=== PATIENT | female | born 1975 | race African-American/Black ===

== ENCOUNTER 2018-05-27 11:01 | Emergency (ER) | payer BC ==
[~2018-05-27] VITALS: Ht 160 cm; Wt 94.3 kg
--- OUTSIDE RECORDS SUMMARY | 2018-05-27 11:04 | XMS REPORT | Clinical Summary ---
Author Author ANDRÉS [facility] Address Unknown Phone Unavailable Care Team Providers Care Snout Puller Name Role Phone Manish Petit RN PCP Unavailable Allergies Comments Active Allergy Reactions Severity Noted Date Black spots Sulfa (Sulfonamide Other (See 05/17/2018 Antibiotics) Comments) Medications End Date Status Medication Sig Dispensed Refills Start Date Active sertraline (ZOLOFT) 100 Take 100 mg 0 MG tablet by mouth 2 (two) times daily . Active busPIRone (BUSPAR) 10 MG Take 10 mg by 0 tablet mouth 3 (three) times daily. Active traZODone (DESYREL) 50 MG Take 100 mg 0 tablet by mouth nightly . Active clonazePAM (KLONOPIN) 1 Take 1 mg by 0 MG tablet mouth 2 (two) times daily as needed for Anxiety. Active omeprazole (PRILOSEC) 40 Take 40 mg by 0 MG capsule mouth daily. Active Problems Problem Noted Date Atypical chest pain 05/18/2018 Obesity 05/18/2018 Weakness 05/17/2018 Encounters Care Team Description Date Type Specialty Chen Rodriguez MD Kemal, MD Everton Botoh, Kimberlee Carlin MD Weakness (Primary Dx); Chest pressure; Atypical chest pain; LATANYA (obstructive sleep apnea); Tobacco use 05/17/2018 Emergency Cardiology - 05/19/2018 05/17/2018 Orders Only General Internal Medicine 05/17/2018 Travel after 05/26/2017 Family History Medical History Relation Name Comments Depression Brother Diabetes Brother Heart disease Brother Mental retardation Brother Arthritis Maternal Grandmother Diabetes Mother Hypertension Mother Hypertension Paternal Grandfather Stroke Paternal Grandfather Hypertension Paternal Grandmother Stroke Paternal Grandmother Relation Name Status Comments Brother Maternal Grandmother Mother Paternal Grandfather Paternal Grandmother Social History Date Tobacco Use Types Packs/Day Years Used Current Every Day Smoker 0.25 Smokeless Tobacco: Never Used Tobacco Cessation: Ready to Quit: No; Counseling Given: Yes Alcohol Use Drinks/Week oz/Week Comments Yes 2 Glasses of 1.2 2glasses wine every night wine Sex Assigned at Date Recorded Not on file Industry Job Start Date Occupation Not on file Not on file Not on file Travel End Travel History Travel Start No recent travel history available. Last Filed Vital Signs Time Taken Vital Sign Reading 05/19/2018 4:18 PM BIOLOGY LECTURER Blood Pressure 133/91 05/19/2018 4:18 PM BIOLOGY LECTURER Pulse 72 05/19/2018 4:18 PM BIOLOGY LECTURER Temperature 36.7 C (98 F) 05/19/2018 4:18 PM BIOLOGY LECTURER Respiratory Rate 18 05/19/2018 4:18 PM BIOLOGY LECTURER Oxygen Saturation 99% 05/19/2018 12:12 AM BIOLOGY LECTURER Inhaled Oxygen 30% Concentration 05/19/2018 8:00 AM BIOLOGY LECTURER Weight 94.3 kg (208 lb) 05/18/2018 12:56 AM BIOLOGY LECTURER Height 160 cm (5' 3") 05/19/2018 8:00 AM BIOLOGY LECTURER Body Mass Index 36.85 Plan of Treatment Not on file Procedures Comments Procedure Name Priority Date/Time Associated Diagnosis REPORT OF PROCEDURE - 05/22/2018 ENDOSCOPY SCAN 2:10 PM CDT RHYTHM STRIP - SCAN 05/22/2018 2:10 PM CDT NM CARDIAC PET PERFUSION KRISTAL 05/19/2018 REST AND/OR STRESS 12:42 PM BIOLOGY LECTURER CBC W/PLT COUNT & AUTO Routine 05/19/2018 DIFFERENTIAL 3:43 AM BIOLOGY LECTURER CBC W/PLT COUNT & AUTO Routine 05/19/2018 DIFFERENTIAL 3:43 AM BIOLOGY LECTURER BASIC METABOLIC PANEL (7) Routine 05/19/2018 3:43 AM BIOLOGY LECTURER ECG 12-LEAD Routine 05/18/2018 5:23 PM BIOLOGY LECTURER ECG 12-LEAD Routine 05/18/2018 5:23 PM BIOLOGY LECTURER Procedure Note - Interface, External Ris In - 05/18/2018 5:29 PM BIOLOGY LECTURER Ventricula r Rate 63 BPM Atrial Rate 63 BPM P-R Interval 164 ms QRS Duration 84 ms Q-T Interval 386 ms QTC Calculatio n(Bazett) 395 ms P Treadwell 57 degrees R Treadwell 27 degrees T Treadwell 22 degrees Normal sinus rhythm Normal ECG When compared with ECG of 9 07:01, No significan t change was found TROPONIN I STAT 05/18/2018 8:27 AM BIOLOGY LECTURER ECG 12-LEAD Routine 05/18/2018 7:01 AM BIOLOGY LECTURER TROPONIN I STAT 05/18/2018 1:20 AM BIOLOGY LECTURER TROPONIN I STAT 05/17/2018 11:46 PM BIOLOGY LECTURER ECG 12-LEAD Routine 05/17/2018 9:52 PM BIOLOGY LECTURER Procedure Note - Interface, External Ris In - 05/17/2018 10:46 PM BIOLOGY LECTURER Ventricula r Rate 66 BPM Atrial Rate 66 BPM P-R Interval 162 ms QRS Duration 82 ms Q-T Interval 386 ms QTC Calculatio n(Bazett) 404 ms P Treadwell 29 degrees R Treadwell 2 degrees T Treadwell 30 degrees Normal sinus rhythm Normal ECG When compared with ECG of 9 12:02, No significan t change was found ECG 12-LEAD STAT 05/17/2018 9:52 PM BIOLOGY LECTURER CBC W/PLT COUNT & AUTO STAT 05/17/2018 DIFFERENTIAL 9:20 PM BIOLOGY LECTURER TROPONIN I STAT 05/17/2018 9:20 PM BIOLOGY LECTURER BASIC METABOLIC PANEL (7) STAT 05/17/2018 9:20 PM BIOLOGY LECTURER B-TYPE NATRIURETIC FACTOR STAT 05/17/2018 (BNP) 9:20 PM BIOLOGY LECTURER CBC W/PLT COUNT & AUTO STAT 05/17/2018 DIFFERENTIAL 9:[address] BRAIN WITHOUT IV STAT 05/17/2018 CONTRAST 9:03 PM BIOLOGY LECTURER XR CHEST 2 VIEWS STAT 05/17/2018 8:43 PM BIOLOGY LECTURER URINALYSIS MICROSCOPIC Routine 05/17/2018 8:23 PM BIOLOGY LECTURER URINALYSIS WITH STAT 05/17/2018 MICROSCOPIC IF INDICATED 8:23 PM BIOLOGY LECTURER SCREEN, URINE STAT 05/17/2018 8:23 PM BIOLOGY LECTURER ECG 12-LEAD Routine 05/17/2018 8:16 PM BIOLOGY LECTURER after 05/26/2017 Results * EKG-SCANNED (05/22/2018 2:10 PM CDT) Narrative Performed At * RHYTHM STRIP - SCAN (05/22/2018 2:10 PM CDT) Narrative Performed At * NM myocardial perfusion PET (rest and stress) (05/19/2018 12:42 PM BIOLOGY LECTURER) Narrative Performed At FINAL REPORT [facility] PROCEDURE: Rest/Stress MYOCARDIAL PERFUSION PET with regadenoson\\XA9\\ CPT CODE:07419 INDICATION:chest pain, chest [id number], obesity BMI=36.8 PROTOCOL:Limited low-dose CT imaging was performed for attenuation correction. 40.2 mCi of Rb-82 chloride was injected iv at rest, and gated PET (positron emission tomography) images were obtained. Subsequently, 40.1 mCi of Rb-82 chloride was injected iv at expected peak pharmacologic effect, and gated PET images were obtained. PRELIMINARY STRESS TEST DATA FROM NONINVASIVE CARDIOLOGY: Pharmacologic stress was by 10-second iv infusion of 0.4 mg of regadenoson. Radiotracer was injected 30 seconds after start of stress. Heart rate was 64 beats/min at rest and 97 beats/min (54% of MPHR) at tracer injection. BP was 124/79 mmHg at rest and 122/86 mmHg at tracer injection. Stress was stopped for predetermined endpoint. Preliminary ECG evaluation was not available from Cardiology at the time of this report. (Final ECG interpretation and other stress and monitoring data are reported separately by Cardiology.) IMAGING FINDINGS: Study quality is good. Images obtained after rest and stress injections show normal LV activity. LV and RV volumes appear normal. Gated images obtained at rest and with stress show normal LV wall motion and thickening. LVEF at rest is 55-60%. LVEF at stress is 72%. IMPRESSION: 1. Normal study.2. Appropriate pharmacologic stress.3. Normal myocardial perfusion.4. Normal resting LV function. No deterioration with pharmacologic stress.5. Normal extracardiac tracer distribution. Signed: Rula Padilla MD Report Verified Date/Time:05/19/2018 15:15:40 Procedure Note Interface, External Ris In - 05/19/2018 3:17 PM BIOLOGY LECTURER FINAL REPORT PROCEDURE: Rest/Stress MYOCARDIAL PERFUSION PET with regadenoson\\XA9\\ CPT CODE: 24209 INDICATION: chest pain, chest pressure R07.89, obesity BMI=36.8 PROTOCOL: Limited low-dose CT imaging was performed for attenuation correction. 40.2 mCi of Rb-82 chloride was injected iv at rest, and gated PET (positron emission tomography) images were obtained. Subsequently, 40.1 mCi of Rb-82 chloride was injected iv at expected peak pharmacologic effect, and gated PET images were obtained. PRELIMINARY STRESS TEST DATA FROM NONINVASIVE CARDIOLOGY: Pharmacologic stress was by 10-second iv infusion of 0.4 mg of regadenoson. Radiotracer was injected 30 seconds after start of stress. Heart rate was 64 beats/min at rest and 97 beats/min (54% of MPHR) at tracer injection. BP was 124/79 mmHg at rest and 122/86 mmHg at tracer injection. Stress was stopped for predetermined endpoint. Preliminary ECG evaluation was not available from Cardiology at the time of this report. (Final ECG interpretation and other stress and monitoring data are reported separately by Cardiology.) IMAGING FINDINGS: Study quality is good. Images obtained after rest and stress injections show normal LV activity. LV and RV volumes appear normal. Gated images obtained at rest and with stress show normal LV wall motion and thickening. LVEF at rest is 55-60%. LVEF at stress is 72%. IMPRESSION: 1. Normal study. 2. Appropriate pharmacologic stress. 3. Normal myocardial perfusion. 4. Normal resting LV function. No deterioration with pharmacologic stress. 5. Normal extracardiac tracer distribution. Signed: Rula Padilla MD Report Verified Date/Time: 05/19/2018 15:15:40 Performing Organization Address City/State/Zipcode Phone Number [facility] * CBC with platelet count + automated diff (05/19/2018 3:43 AM BIOLOGY LECTURER) Only the most recent of 2 results within the time period is included. WBC 7.1 3.5 - 10.5 K/L [facility] RBC 4.21 3.93 - 5.22 M/L [facility] Hemoglobin 10.7 (L) 11.2 - 15.7 GM/DL [facility] Hematocrit 35.1 34.1 - 44.9 % [facility] MCV 83.4 79.4 - 94.8 fL [facility] MCH 25.4 (L) 25.6 - 32.2 pg [facility] MCHC 30.5 (L) 32.2 - 35.5 GM/DL [facility] RDW 17.3 (H) 11.7 - 14.4 % [facility] Platelets 287 150 - 450 K/CU MM [facility] MPV 10.5 9.4 - 12.3 fL [facility] nRBC 0 0 - 0 /100 WBC [facility] % Neutros 50 % [facility] % Lymphs 37 % [facility] % Monos 9 % [facility] % Eos 3 % [facility] % Baso 1 % [facility] # Neutros 3.52 1.56 - 6.13 K/L [facility] # Lymphs 2.62 1.18 - 3.74 K/L [facility] # Monos 0.64 (H) 0.24 - 0.36 K/L [facility] # Eos 0.19 0.04 - 0.36 K/L [facility] # Baso 0.06 0.01 - 0.08 K/L [facility] Immature 0 0 - 1 % [facility] Granulocytes-Relative [facility] Specimen Blood - Arm, Right Performing Organization Address City/[facility]/Zipcode Phone Number [facility] [address], [place] [phone] [facility] * Basic metabolic panel (05/19/2018 3:43 AM BIOLOGY LECTURER) Only the most recent of 2 results within the time period is included. Sodium 140 136 - 145 meq/L [facility] Potassium 4.8 3.5 - 5.1 meq/L [facility] Chloride 105 98 - 107 meq/L [facility] CO2 28 22 - 29 meq/L [facility] BUN 9 7 - 21 mg/dL [facility] Creatinine 0.80 0.57 - 1.25 mg/dL [facility] Glucose 84 70 - 105 mg/dL [facility] Calcium 9.4 8.4 - 10.2 mg/dL [facility] EGFR 95Comment: ESTIMATED GFR IS mL/min/1.73 sq m [facility] NOT ACCURATE CREATININE [facility] CLEARANCE IN PREDICTING GLOMERULAR FILTRATION RATE. ESTIMATED GFR IS NOT APPLICABLE FOR DIALYSIS PATIENTS. Specimen Blood - Arm, Right Performing Organization Address [facility] Phone Number [facility] [address], [place] [phone] [facility] * ECG 12 lead (05/18/2018 5:23 PM BIOLOGY LECTURER) Only the most recent of 4 results within the time period is included. Narrative Performed At Ventricular Rate 63 BPM [facility] Atrial Rate 63 BPM P-R Interval 164 ms QRS Duration 84 ms Q-T Interval 386 ms QTC Calculation(Bazett) 395 ms P Treadwell 57 degrees R Treadwell 27 degrees T Treadwell 22 degrees Normal sinus rhythm Normal ECG When compared with ECG of 18-MAY-2018 07:01, No significant change was found Confirmed by MD Graham Roberto ([id number]) on 05/19/2018 11:16:45 AM Procedure Note Interface, External Ris In - 05/19/2018 11:16 AM BIOLOGY LECTURER Ventricular Rate 63 BPM Atrial Rate 63 BPM P-R Interval 164 ms QRS Duration 84 ms Q-T Interval 386 ms QTC Calculation(Bazett) 395 ms P Treadwell 57 degrees R Treadwell 27 degrees T Treadwell 22 degrees Normal sinus rhythm Normal ECG When compared with ECG of 18-MAY-2018 07:01, No significant change was found Confirmed by MD Graham Roberto ([id number]) on 05/19/2018 11:16:45 AM Performing Organization Address City/[facility]/Zipcode Phone Number [facility] * Troponin I (05/18/2018 8:27 AM BIOLOGY LECTURER) Only the most recent of 4 results within the time period is included. Troponin I <0.01 0.00 - 0.03 ng/mL [facility] Specimen Blood Narrative Performed At Troponin I (TnI) levels must be interpreted in the context of the presenting [facility] symptoms and the clinical findings. Elevated TnI levels indicate myocardial [facility] damage, but are not specific for ischemic heart disease. Elevated TnI levels are seen in patients with other cardiac conditions (including myocarditis and congestive heart failure), and slight TnI elevations occur in patients with other conditions, including sepsis, renal failure, acidosis, acute neurological disease, and persistent tachyarrhythmia. Performing Organization Address [facility] Phone Number [place] [phone] * B-type Natriuretic Factor (BNP) (05/17/2018 9:20 PM BIOLOGY LECTURER) BNP 33 0 - 100 pg/mL [facility] Specimen Blood - Arm, Right Performing Organization Address [facility] Phone Number [address] [address] [facility] * CT brain without IV contrast (05/17/2018 9:03 PM BIOLOGY LECTURER) Narrative Performed At FINAL REPORT [facility] CT, BRAIN, WITHOUT CONTRAST CLINICAL INDICATION:Focal neuro deficit, new, fixed or worsening, >6 hours NEUROLOGIC PROBLEM COMPARISON: None TECHNIQUE:Noncontrast axial CT imaging of the brain and skull. DOSE REDUCTION: Dose modulation, iterative reconstruction, and/or weight-based adjustment of the mA/kV was utilized to reduce the radiation dose to as low as reasonably achievable. FINDINGS: Cerebral parenchyma: Unremarkable. Midline structures: Normally positioned. Cerebellum and brainstem: Normal. Ventricles: Normal volume. Extra-axial spaces: Unremarkable. Calvarium and skull base: Intact. Paranasal sinuses and mastoid air cells: Visible chambers are clear. Orbital contents: Included portions unremarkable. Additional findings: None. IMPRESSION: No acute intracranial abnormality. If there is persistent clinical concern for intracranial pathology, MR examination is recommended for further characterization. Signed: JR Le Robert MD Report Verified Date/Time:05/17/2018 21:03:08 Reading Location: [facility] Radiology Reading Room Procedure Note Interface, External Ris In - 05/17/2018 9:05 PM BIOLOGY LECTURER FINAL REPORT CT, BRAIN, WITHOUT CONTRAST CLINICAL INDICATION: Focal neuro deficit, new, fixed or worsening, >6 hours NEUROLOGIC PROBLEM COMPARISON: None TECHNIQUE: Noncontrast axial CT imaging of the brain and skull. DOSE REDUCTION: Dose modulation, iterative reconstruction, and/or weight-based adjustment of the mA/kV was utilized to reduce the radiation dose to as low as reasonably achievable. FINDINGS: Cerebral parenchyma: Unremarkable. Midline structures: Normally positioned. Cerebellum and brainstem: Normal. Ventricles: Normal volume. Extra-axial spaces: Unremarkable. Calvarium and skull base: Intact. Paranasal sinuses and mastoid air cells: Visible chambers are clear. Orbital contents: Included portions unremarkable. Additional findings: None. IMPRESSION: No acute intracranial abnormality. If there is persistent clinical concern for intracranial pathology, MR examination is recommended for further characterization. Signed: JR Le Robert MD Report Verified Date/Time: 05/17/2018 21:03:08 Reading Location: [facility] Radiology Reading Room Performing Organization Address City/State/Zipcode Phone Number [facility] * XR chest 2 views (05/17/2018 8:43 PM BIOLOGY LECTURER) Narrative Performed At FINAL REPORT [facility] Chest, 2 views. Clinical History: NEUROLOGIC PROBLEM Comparison Study: December 08, 2008 Findings:The heart and lungs are within normal limits.A hiatal hernia is present, slightly larger than on previous. The pleural spaces are clear. Degenerative changes are seen. Impression: No active cardiopulmonary disease. Hiatal hernia. Signed: Giram Larry MD Report Verified Date/Time:05/17/2018 21:11:33 Reading Location: [id number] Ortho Consult Reading Room Procedure Note Interface, External Ris In - 05/17/2018 9:13 PM BIOLOGY LECTURER FINAL REPORT Chest, 2 views. Clinical History: NEUROLOGIC PROBLEM Comparison Study: December 08, 2008 Findings: The heart and lungs are within normal limits. A hiatal hernia is present, slightly larger than on previous. The pleural spaces are clear. Degenerative changes are seen. Impression: No active cardiopulmonary disease. Hiatal hernia. Signed: Girma Larry MD Report Verified Date/Time: 05/17/2018 21:11:33 Reading Location: [id number] Ortho Consult Reading Room Performing Organization Address [facility]/Zipcode Phone Number [facility] * Urinalysis Microscopic Only (05/17/2018 8:23 PM BIOLOGY LECTURER) RBC, UA 4 /HPF [facility] WBC, UA <1 /HPF [facility] Mucus Occasional [facility] Squam Epithel, UA 1 /HPF [facility] Specimen Urine - Urine, Voided Performing Organization Address [facility]/Zipcode Phone Number [facility] [address] [place] [address] [facility] * Urinalysis with Microscopic If Indicated (05/17/2018 8:23 PM BIOLOGY LECTURER) Color, UA Yellow [facility] Clarity, UA Clear [facility] Specific [place], UA 1.019 1.001 - 1.035 [facility] pH, UA 6.0 5.0 - 8.0 [facility] Protein, UA 20 mg/dL (A) Negative [facility] Glucose, UA Negative Negative [facility] Ketones, UA 10 mg/dL (A) Negative [facility] Bilirubin, UA Negative Negative [facility] Blood, UA Small (A) Negative [facility] Nitrite, UA Negative Negative [facility] Leukocytes, UA Negative Negative [facility] Urobilinogen, UA 0.2 0.2 - 1.0 mg/dL [facility] Specimen Source [facility] Specimen Urine - Urine, Voided Performing Organization Address City/[facility] Phone Number [address] [address] [facility] * screen, urine (05/17/2018 8:23 PM BIOLOGY LECTURER) Preg Test, Ur Negative [facility] Specimen Urine - Urine, Voided Performing Organization Address City/State/Zipcode Phone Number [address] [address] [facility] after 05/26/2017 Advance Directives For more information, please contact: [address] [phone] Date Inactivated Comments Code Status Date Activated 05/19/2018 7:47 PM Full Code 05/18/2018 12:47 AM This code status was determined by: Patient
--- OUTSIDE RECORDS SUMMARY | 2018-05-27 11:04 | XMS REPORT ---
Author Author [facility] Address Unknown Phone Unavailable Care Team Providers Care Oracle Sql Developer Name Role Phone MARSHAL ALEX Unavailable Unavailable Problems This patient has no known problems. Allergies, Adverse Reactions, Alerts This patient has no known allergies or adverse reactions. Medications This patient has no known medications. Results Test Description Test Time Test Comments Text Results Atomic Results Result Comments PET, CARDIAC PERFUSION MULTIPLE STUDIES, REST AND STRESS 2018-05-19 15:15:00 Reason for exam:->chest pain FINAL REPORT PROCEDURE: Rest/Stress MYOCARDIAL PERFUSION PET with regadenoson\XA9\CPT CODE: [id number]: chest pain, chest pressure R07.89, obesity BMI=3 6.8PROTOCOL: Limited low-dose CT imaging was performed for [...] Normal extracardiac tracer distribution. Signed: Rula Padilla MDReport Verified Date/Time: 05/19/2018 15:15:40 C METABOLIC PANEL 2018-05-19 04:18:00 SODIUM (BEAKER) (test fmah=201) 140 meq/L 136-145 POTASSIUM (BEAKER) (test pxmm=116) 4.8 meq/L 3.5-5.1 CHLORIDE (BEAKER) (test tvxe=562) 105 meq/L 98-107 CO2 (BEAKER) (test iwpn=941) 28 meq/L 22-29 BLOOD UREA NITROGEN (BEAKER) (test dnue=045) 9 mg/dL 7-21 CREATININE (BEAKER) (test ldgo=691) 0.80 mg/dL 0.57-1.25 GLUCOSE RANDOM (BEAKER) (test onsp=603) 84 mg/dL 70-105 CALCIUM (BEAKER) (test wecl=405) 9.4 mg/dL 8.4-10.2 EGFR (BEAKER) (test ejrs=9621) 95 mL/min/1.73 sq m ESTIMATED GFR IS NOT ACCURATE CREATININE CLEARANCE IN PREDICTING GLOMERULAR FILTRATION RATE. ESTIMATED GFR IS NOT APPLICABLE FOR DIALYSIS PATIENTS. CBC W/PLT COUNT & AUTO [id number] 04:09:00* Test Item Value Reference Range Comments WHITE BLOOD CELL COUNT (BEAKER) (test otpa=341) 7.1 K/ L 3.5-10.5 RED BLOOD CELL COUNT (BEAKER) (test noyw=354) 4.21 M/ L 3.93-5.22 HEMOGLOBIN (BEAKER) (test gnbp=827) 10.7 GM/DL 11.2-15.7 HEMATOCRIT (BEAKER) (test mnew=131) 35.1 % 34.1-44.9 MEAN CORPUSCULAR VOLUME (BEAKER) (test bihr=389) 83.4 fL 79.4-94.8 MEAN CORPUSCULAR HEMOGLOBIN (BEAKER) (test iwyj=963) 25.4 pg 25.6-32.2 MEAN CORPUSCULAR HEMOGLOBIN CONC (BEAKER) (test boum=326) 30.5 GM/DL 32.2-35.5 RED CELL DISTRIBUTION WIDTH (BEAKER) (test osuc=702) 17.3 % 11.7-14.4 PLATELET COUNT (BEAKER) (test qijk=237) 287 K/CU MM 150-450 MEAN PLATELET VOLUME (BEAKER) (test xups=963) 10.5 fL 9.4-12.3 NUCLEATED RED BLOOD CELLS (BEAKER) (test tbej=978) 0 /100 WBC 0-0 NEUTROPHILS RELATIVE PERCENT (BEAKER) (test yknn=080) 50 % LYMPHOCYTES RELATIVE PERCENT (BEAKER) (test rvdh=390) 37 % MONOCYTES RELATIVE PERCENT (BEAKER) (test zvgm=085) 9 % EOSINOPHILS RELATIVE PERCENT (BEAKER) (test fsxu=209) 3 % BASOPHILS RELATIVE PERCENT (BEAKER) (test qnrr=820) 1 % NEUTROPHILS ABSOLUTE COUNT (BEAKER) (test eugh=027) 3.52 K/ L 1.56-6.13 LYMPHOCYTES ABSOLUTE COUNT (BEAKER) (test petj=294) 2.62 K/ L 1.18-3.74 MONOCYTES ABSOLUTE COUNT (BEAKER) (test rfix=993) 0.64 K/ L 0.24-0.36 EOSINOPHILS ABSOLUTE COUNT (BEAKER) (test eqlq=151) 0.19 K/ L 0.04-0.36 BASOPHILS ABSOLUTE COUNT (BEAKER) (test hpki=330) 0.06 K/ L 0.01-0.08 IMMATURE GRANULOCYTES-RELATIVE PERCENT (BEAKER) (test jlev=7786) 0 % 0-1 TROPONIN [id number] 09:09:00* Test Item Value Reference Range Comments TROPONIN I (BEAKER) (test euty=828) < ng/mL 0.00-0.03 Troponin I (TnI) levels must be interpreted in the context of the presenting sym ptoms and the clinical findings. Elevated TnI levels indicate myocardial damage, but are not specific for ischemic heart disease. Elevated TnI levels are seen in patients with other cardiac conditions (including myocarditis and congestive h eart failure), and slight TnI elevations occur in patients with other conditions , including sepsis, renal failure, acidosis, acute neurological disease, and per sistent tachyarrhythmia.TROPONIN [id number] 02:27:00* Test Item Value Reference Range Comments TROPONIN I (BEAKER) (test stxn=939) < ng/mL 0.00-0.03 Troponin I (TnI) levels must be interpreted in the context of the presenting sym ptoms and the clinical findings. Elevated TnI levels indicate myocardial damage, but are not specific for ischemic heart disease. Elevated TnI levels are seen in patients with other cardiac conditions (including myocarditis and congestive h eart failure), and slight TnI elevations occur in patients with other conditions , including sepsis, renal failure, acidosis, acute neurological disease, and per sistent tachyarrhythmia.TROPONIN [id number] 00:53:00* Test Item Value Reference Range Comments TROPONIN I (BEAKER) (test ycdx=024) < ng/mL 0.00-0.03 Troponin I (TnI) levels must be interpreted in the context of the presenting sym ptoms and the clinical findings. Elevated TnI levels indicate myocardial damage, but are not specific for ischemic heart disease. Elevated TnI levels are seen in patients with other cardiac conditions (including myocarditis and congestive h eart failure), and slight TnI elevations occur in patients with other conditions , including sepsis, renal failure, acidosis, acute neurological disease, and per sistent tachyarrhythmia.B-TYPE NATRIURETIC FACTOR (BNP)2018-05-17 22:00:00* Test Item Value Reference Range Comments B-TYPE NATRIURETIC PEPTIDE (BEAKER) (test bfvl=138) 33 pg/mL 0-100 TROPONIN [id number] 22:00:00* Test Item Value Reference Range Comments TROPONIN I (BEAKER) (test ksgs=643) < ng/mL 0.00-0.03 Troponin I (TnI) levels must be interpreted in the context of the presenting sym ptoms and the clinical findings. Elevated TnI levels indicate myocardial damage, but are not specific for ischemic heart disease. Elevated TnI levels are seen in patients with other cardiac conditions (including myocarditis and congestive h eart failure), and slight TnI elevations occur in patients with other conditions , including sepsis, renal failure, acidosis, acute neurological disease, and per sistent tachyarrhythmia.BASIC METABOLIC [id number] 21:53:00* Test Item Value Reference Range Comments SODIUM (BEAKER) (test kwyy=490) 138 meq/L 136-145 POTASSIUM (BEAKER) (test sarg=227) 4.2 meq/L 3.5-5.1 CHLORIDE (BEAKER) (test lqrf=917) 102 meq/L 98-107 CO2 (BEAKER) (test incn=577) 26 meq/L 22-29 BLOOD UREA NITROGEN (BEAKER) (test ptdj=312) 9 mg/dL 7-21 CREATININE (BEAKER) (test bpzd=872) 0.76 mg/dL 0.57-1.25 GLUCOSE RANDOM (BEAKER) (test qhxj=556) 80 mg/dL 70-105 CALCIUM (BEAKER) (test qmjc=461) 9.3 mg/dL 8.4-10.2 EGFR (BEAKER) (test apve=6006) 101 mL/min/1.73 sq m ESTIMATED GFR IS NOT ACCURATE CREATININE CLEARANCE IN PREDICTING GLOMERULAR FILTRATION RATE. ESTIMATED GFR IS NOT APPLICABLE FOR DIALYSIS PATIENTS. CBC W/PLT COUNT & AUTO [id number] 21:38:00* Test Item Value Reference Range Comments WHITE BLOOD CELL COUNT (BEAKER) (test mvgm=565) 7.3 K/ L 3.5-10.5 RED BLOOD CELL COUNT (BEAKER) (test emhw=327) 4.12 M/ L 3.93-5.22 HEMOGLOBIN (BEAKER) (test yaem=216) 10.6 GM/DL 11.2-15.7 HEMATOCRIT (BEAKER) (test elef=341) 33.7 % 34.1-44.9 MEAN CORPUSCULAR VOLUME (BEAKER) (test pkhv=880) 81.8 fL 79.4-94.8 MEAN CORPUSCULAR HEMOGLOBIN (BEAKER) (test okix=544) 25.7 pg 25.6-32.2 MEAN CORPUSCULAR HEMOGLOBIN CONC (BEAKER) (test kgxy=280) 31.5 GM/DL 32.2-35.5 RED CELL DISTRIBUTION WIDTH (BEAKER) (test ahgu=161) 16.9 % 11.7-14.4 PLATELET COUNT (BEAKER) (test sztl=843) 300 K/CU MM 150-450 MEAN PLATELET VOLUME (BEAKER) (test ozhs=707) 10.4 fL 9.4-12.3 NUCLEATED RED BLOOD CELLS (BEAKER) (test hnsz=506) 0 /100 WBC 0-0 NEUTROPHILS RELATIVE PERCENT (BEAKER) (test fxmi=412) 56 % LYMPHOCYTES RELATIVE PERCENT (BEAKER) (test tyvm=453) 31 % MONOCYTES RELATIVE PERCENT (BEAKER) (test kghs=428) 10 % EOSINOPHILS RELATIVE PERCENT (BEAKER) (test iibb=264) 2 % BASOPHILS RELATIVE PERCENT (BEAKER) (test eqdz=360) 1 % NEUTROPHILS ABSOLUTE COUNT (BEAKER) (test ktoi=766) 4.09 K/ L 1.56-6.13 LYMPHOCYTES ABSOLUTE COUNT (BEAKER) (test npub=267) 2.28 K/ L 1.18-3.74 MONOCYTES ABSOLUTE COUNT (BEAKER) (test qhpn=753) 0.72 K/ L 0.24-0.36 EOSINOPHILS ABSOLUTE COUNT (BEAKER) (test nujs=535) 0.15 K/ L 0.04-0.36 BASOPHILS ABSOLUTE COUNT (BEAKER) (test zvot=308) 0.05 K/ L 0.01-0.08 IMMATURE GRANULOCYTES-RELATIVE PERCENT (BEAKER) (test pfro=2928) 0 % 0-1 SCREEN, [id number] 21:21:00* Test Item Value Reference Range Comments TEST URINE (BEAKER) (test xjfh=212) Negative URINALYSIS [id number] 21:21:00* Test Item Value Reference Range Comments RBC UA (BEAKER) (test bmeo=881) 4 /HPF WBC UA (BEAKER) (test zvhv=444) < /HPF MUCUS (BEAKER) (test eoqm=7530) Occasional SQUAMOUS EPITHELIAL (BEAKER) (test ramy=904) 1 /HPF URINALYSIS WITH MICROSCOPIC IF [id number] 21:20:00* Test Item Value Reference Range Comments COLOR (BEAKER) (test lhib=206) Yellow CLARITY (BEAKER) (test kcok=842) Clear SPECIFIC GRAVITY UA (BEAKER) (test wuka=809) 1.019 1.001-1.035 PH UA (BEAKER) (test hpeo=347) 6.0 5.0-8.0 PROTEIN UA (BEAKER) (test fzwg=129) 20 mg/dL Negative GLUCOSE UA (BEAKER) (test zfgq=385) Negative Negative KETONES UA (BEAKER) (test hjer=093) 10 mg/dL Negative BILIRUBIN UA (BEAKER) (test ieuq=601) Negative Negative BLOOD UA (BEAKER) (test jyqq=709) Small Negative NITRITE UA (BEAKER) (test znji=817) Negative Negative LEUKOCYTE ESTERASE UA (BEAKER) (test rgze=343) Negative Negative UROBILINOGEN UA (BEAKER) (test nehc=981) 0.2 mg/dL 0.2-1.0 SOURCE(BEAKER) (test ltix=2009) RAD, CHEST, 2 [id number] 21:11:00Reason for exam:->NEUROLOGIC PROBLEMFINAL REPORT Chest, 2 views. Clinical History: NEUROLOGIC PROBLEM Comparison Study: December 08, 2008 Findings: The heart and lungs are within normal limits. A hiatal hernia is present, slightly larger than on prev ious. The pleural spaces are clear. Degenerative changes are seen. Impression: N o active cardiopulmonary disease. Hiatal hernia. Signed: Girma Larry Verified Date/Time: 05/17/2018 21:11:33 Reading Location: [address] Ortho Consult Reading Room Electronically signed by: GIRMA LARRY M.D. on 09/2018 09:[address], BRAIN, WITHOUT [id number] 21:03:00Reason for exam:-> NEUROLOGIC PROBLEMIs the patient ?->NoWhat is the patient's sedation requirement?->No SedationFINAL REPORT CT, BRAIN, WITHOUT CONTRAST CLINICAL INDICATION: Focal neuro deficit, new, fixed or worsening, >6 hoursNEUROLOGIC PROBLEM COMPARISON: None TECHNIQUE: Noncontrast axial CT imag ing of the brain and skull. DOSE REDUCTION: Dose modulation, iterative reconstr uction, and/or weight-based adjustment of the mA/kV was utilized to reduce the r adiation dose to as low as reasonably achievable. FINDINGS:Cerebral parenchyma: Unremarkable.Midline structures: Normally positioned.Cerebellum and brainstem: N ormal.Ventricles: Normal volume.Extra-axial spaces: Unremarkable. Calvarium and skull base: Intact.Paranasal sinuses and mastoid air cells: Visible chambers are clear.Orbital contents: Included portions unremarkable. Additional findings: No ne. IMPRESSION: No acute intracranial abnormality. If there is persistent clini feroz concern for intracranial pathology, MR examination is recommended for furthe r characterization. Signed: JR Le Robert MDReport Verified Date/Time : 05/17/2018 21:03:08 Reading Location: [facility] Reading Room
--- NOTE | 2018-05-27 12:09 | Diagnostic Imaging Report ---
Toes left CPT code: 24513 Indication: Trauma. Technique: Three views of the left fifth toe obtained without comparison. Findings: There is a dislocation of the proximal IP joint of the fifth digit with posterior and slight fibular displacement of the middle phalanx relative to the proximal phalanx. There is no evidence of fracture. Remainder of the digits are intact. There is a prominent plantar calcaneal spur. No radiopaque foreign bodies in the soft tissues. IMPRESSION: Fifth digit dislocation at the proximal IP joint. No evidence of fracture on provided images. Signed by: Dr. Morgan Morris MD on 05/27/2018 12:06 PM
[2018-05-27] MEDS ORDERED: HYDROCODONE/APAP 5MG-325MG TAB PO ONE (13:00)
[2018-05-27] MEDS ORDERED: TYLENOL WITH C1 EACH PO (15:14)
[2018-05-27 15:19] VITALS: BP 148/88
== END 2018-05-27 15:21 | disposition home or self-care (01) ==
LOC: FSED 11:01
DX: S93.115A Dislocation of interphalangeal joint of left lesser toe(s), initial encounter (principal); W22.09XA Striking against other stationary object, initial encounter; Y92.008 Other place in unspecified non-institutional (private) residence as the place of occurrence of the external cause
CPT/HCPCS: 99283